=== PATIENT | male | born 1970 | race Caucasian/White ===

== ENCOUNTER → 2019-02-11 10:01 | Outpatient (CLI) | payer OTHER, SELFPAY ==
[2019-02-11 10:26] LABS: Basophils % 0.5 % (0.1-2.0); Eosinophils # 0.1 K/mm3 (0.0-0.4); Eosinophils % 1.8 % (0.1-12.0); Hematocrit 41.2 % (42.0-52.0); Hemoglobin 13.9 g/dL (14.1-18.0); Lymphocytes # 1.1 K/mm3 (0.7-4.5); Lymphocytes % 32.6 % (10-50); Mean Corpuscular HGB Conc 33.8 g/dL (31.8-35.4); Mean Corpuscular Hemoglobin 30.7 pg (27.0-31.2); Mean Corpuscular Volume 90.9 fl (80-94); Mean Platelet Volume 8.8 fl (7.4-10.4); Monocytes # 0.2 K/mm3 (0.1-1.0); Monocytes % 4.4 % (1.7-9.3); Neutrophils # 2.1 K/mm3 (1.8-7.8); Neutrophils % 60.7 % (37.0-80.0); Platelet Count 163 K/mm3 (142-424); Red Blood Count 4.53 M/mm3 (4.60-6.20); Red Cell Distribution Width 13.1 % (11.5-17.5); White Blood Count 3.4 K/mm3 (4.8-10.8)
[2019-02-11 11:51] LABS: Alanine Aminotransferase 41 U/L (12-78); Albumin Level 4.4 gm/dL (3.4-5.0); Albumin/Globulin Ratio 1.5 (1.1-1.8); Alkaline Phosphatase 50 U/L (46-116); Anion Gap 12.7 mEq/L (5-15); Aspartate Amino Transferase 25 U/L (15-37); Bilirubin,Total 0.5 mg/dL (0.2-1.0); Blood Urea Nitrogen 15 mg/dL (7-18); Carbon Dioxide 28 mmol/L (21.0-32.0); Chloride 105 mmol/L (98-107); Chol/HDL Ratio 3.6 (1-3.5); Cholesterol 176 mg/dL (140-200); Creatinine,Serum 1.05 mg/dL (0.70-1.30); Estimated Glomerular Filt Rate 75 ml/min (>60); GFR (African American) 91 ML/MIN (>60); Globulin 2.9 gm/dl (1.3-3.2); Glucose 96 mg/dL (74-106); HDL Cholesterol 49 mg/dL (27-67); LDL Cholesterol 117 mg/dL (0-130); Potassium 4.7 mmoL/L (3.5-5.1); Sodium 141 mmol/L (136-145); Total Protein,Serum 7.3 gm/dL (6.4-8.2); Triglycerides 52 mg/dL (30-200); VLDL Cholesterol 10 mg/dL (0-40)
== END ==
PROVIDERS: Visit Provider Nurse Practitioner Family
DX: Z00.00 Encounter for general adult medical examination without abnormal findings (principal); Z83.71 Family history of colonic polyps; K62.5 Hemorrhage of anus and rectum
CPT/HCPCS: 36415; 80053; 80061; 85025

== ENCOUNTER → 2021-04-12 10:12 | Outpatient (CLI) | payer OTHER, SELFPAY | PROVIDERS: PCP Internal Medicine Adolescent Medicine; Visit Provider Nurse Practitioner | DX: U07.1 COVID-19 (principal) | CPT/HCPCS: C9803; U0003; U0005 ==

== ENCOUNTER 2021-04-14 15:22 | Emergency (ER) | payer OTHER, SELFPAY ==
[2021-04-14 15:40] VITALS: BP 125/90; PULSE 70; RESP 21; TEMP 36.9; O2SAT 99; BMI 25.0
--- NOTE | 2021-04-14 15:48 | XR_ITS ---
PROCEDURE INFORMATION: Exam: XR Chest Exam date and time: 04/14/2021 3:48 PM Age: 50 years old Clinical indication: Cough; Additional info: Covid +, cough TECHNIQUE: Imaging protocol: XR of the chest. Views: 1 view. COMPARISON: No relevant prior studies available. FINDINGS: Lungs: Atelectatic changes noted within both lung bases. Pleural spaces: Unremarkable. No pleural effusion. No pneumothorax. Heart/Mediastinum: Unremarkable. No cardiomegaly. Bones/joints: Unremarkable. IMPRESSION: Atelectatic changes noted within both lung bases.
--- NOTE | 2021-04-14 16:09 | HMH.EDUTC ---
[facility] [place] Clinical Impression: Bronchitis due to COVID-19 virus Disposition: Home, Self-Care Condition on Discharge: Good Instructions: Pneumonia-Adult, DI for COVID-19 (Suspected or Confirmed ) Additional Instructions: You may want to speak with your Family Doctor about the infusions available for people with COVID to see if you meet the criteria you can call your Family Doctor to see if you are a candidate Start Oral Dexamethasone tomorrow ? Start antibiotic today. Be sure to complete entire prescription even if feeling better ? Monitor temp. Tylenol every 4 hours as needed and / or ibuprofen every 6 hours as needed ( As long as your primary care physician has told you that it ok to take both. For fever/aches/pains ER if no less than 101 despite Tylenol or Motrin ? Humidifier/vaporizer or hot steamy shower ? Inhaler every 4-6 hours as needed like we discussed. If unsure how to use it, ask pharmacist to demonstrate how. Should help open airways and improve cough, wheezing, and shortness of breath ? Mucinex during the day for your cough and cough suppressant only at night. Be sure to drink lots of water. Insurance may not cover a prescriptions for mucinex. Might be cheaper to get 400mg tablets and take 2 tablet in the morning, mid-day and evening with lots of water. *Start steroid tomorrow. Helps with inflammation therefore, cough and wheezing. Follow directions on the package. Reviewed side effects. Patient reports taking them before. Follow up IMMEDIATELY for new or worsening of symptoms OR no noticeable improvement over the next 48-72 hours. 911 immediately for any life threatening symptoms such as chest pain or difficulty breathing Prescriptions: Albuterol Sulfate [Proventil-HFA 90mcg/puff Inh] 1 - 2 puffs IH Q6HP PRN #1 each PRN Reason: Shortness Of Breath Transmission Status: Received by [facility] # dexAMETHasone [Dexamethasone] 6 mg PO DAILY 5 Days #5 tab Transmission Status: Received by [facility] # guaiFENesin [Mucinex 600mg tablet] 1 - 2 tab PO BID PRN #20 tab PRN Reason: Congestion Transmission Status: Received by [facility] # Azithromycin [Z-Mika 250mg Tab] 250 mg PO DIRECTED #6 tab Transmission Status: Received by [facility] #[id number] Referrals: Krunal Heredia MD [Primary Care Provider] - As needed Time of Disposition: 16:48 Medical Decision Making - Andre Inquiry Pt receiving controlled substance: No Andre was queried for this patient: No Vital Signs: 04/14/21 15:40 04/14/21 17:03 Temperature 98.4 F 98.4 F Temperature Source Oral Pulse Rate 70 Pulse Rate [Right Brachial] 70 Respiratory Rate 21 Blood Pressure 125/90 Blood Pressure [Right Arm] 125/90 Blood Pressure Mean [Right Arm] 101 Blood Pressure Source [Right Arm] Automatic Cuff Blood Pressure Position [Right Arm] Sitting 02 Sat by Pulse Oximetry 99 Oxygen Delivery Method Room Air Orders (Tests/Meds): ED MEDICATIONS Discontinued Medications Generic Name Dose Route Start Last Admin Trade Name Freq PRN Reason Stop Dose Admin Ceftriaxone Sodium 1 gm 04/14/21 16:44 04/14/21 16:55 Ceftriaxone 1gm Vial IM 04/14/21 16:45 1 gm ONCE ONE Administration Lidocaine HCl 0 ml 04/14/21 16:44 04/14/21 16:55 Lidocaine 1% 5ml Pf Vial IM 04/14/21 16:45 2.1 ml ONCE ONE Administration Methylprednisolone Sodium Succinate 125 mg 04/14/21 16:44 04/14/21 16:55 Methylprednisolone Sod Succ 125mg Vial IM 04/14/21 16:45 125 mg ONCE ONE Administration [facility] [place] HPI - General Stated complaint: cough,sore throat,SOA,ZUNIGA pavel Time Seen by Provider: 04/14/21 16:09 Mode of Arrival: Ambulatory Source of Information: Patient Limitations: No Limitations Description of Symptoms (Recalled from Triage Doc. by RN): PATIENT TESTED POSITIVE FOR COVID ON 04/12/21. C/O CHEST THIGHTNESS/CONGESTION HEENT Symptoms (Recalled from RN notes): No Resp Symptoms
[2021-04-14 17:03] VITALS: BP 125/90; PULSE 70; RESP 21; TEMP 36.9; O2SAT 99
== END 2021-04-14 17:07 | disposition home or self-care (01) ==
PROVIDERS: Emergency Provider Nurse Practitioner; PCP Internal Medicine Adolescent Medicine
DX: J20.9 Acute bronchitis, unspecified (principal); U07.1 COVID-19
CPT/HCPCS: 71045; 96372; 99202; G0463

== ENCOUNTER → 2022-07-21 23:28 | Outpatient (CLI) | payer OTHER, SELFPAY | PROVIDERS: PCP Student in an Organized Health Care Education/Training Program; Visit Provider Student in an Organized Health Care Education/Training Program | DX: J02.9 Acute pharyngitis, unspecified (principal) | CPT/HCPCS: 87070 ==

== ENCOUNTER 2023-07-29 09:27 | Outpatient (CLI) | payer OTHER, SELFPAY ==
[2023-07-30 07:43] LABS: Measles Antibodies, IgG >300.0 AU/mL (Immune >16.4); Mumps Abs, IgG 22.1 AU/mL (Immune >10.9)
[2023-07-30 16:34] LABS: Hepatitis B Surf Ab Quant 11.2 mIU/mL (Immunity>9.9)
== END 2023-07-29 23:59 ==
PROVIDERS: PCP Internal Medicine Adolescent Medicine; Visit Provider Physician Assistant
DX: Z01.84 Encounter for antibody response examination (principal)
CPT/HCPCS: 36415; 86706; 86735; 86762; 86765

== ENCOUNTER 2025-04-18 14:48 | Outpatient (CLI) | payer BC, SELFPAY ==
--- NOTE | 2025-04-18 14:52 | XR_ITS ---
FINAL REPORT CLINICAL HISTORY: PAIN RT SHOULDER FINDINGS: RIGHT SHOULDER Three views demonstrate no acute fracture or dislocation. The visualized joint spaces are normally aligned. The soft tissues are unremarkable. IMPRESSION: No acute process. Reviewed, Interpreted and Dictated by Jovan Murphy MD Transcribed by Marianne Tejada Authenticated and . [facility]
== END 2025-04-18 23:59 | disposition home or self-care (01) ==
LOC: RAD 14:49
PROVIDERS: PCP Internal Medicine Adolescent Medicine; Visit Provider Nurse Practitioner Family
DX: M25.511 Pain in right shoulder (principal); G89.29 Other chronic pain
CPT/HCPCS: 73030